=== PATIENT | male | born 2000 | race Caucasian/White ===

== ENCOUNTER 2022-05-13 19:08 | Inpatient (IN) ==
[2022-05-13 19:49] LABS: Basophils # 0.1 K/mcL (0.0-0.2); Basophils % 0.5 %; Eosinophils # 0.1 K/mcL (0.0-0.6); Eosinophils % 0.7 %; Hematocrit 40.7 % (37.5-50.1); Hemoglobin 14.3 g/dL (12.9-16.9); Immature Granulocytes % 0.3 % (0-4); Lymphocytes # 2.8 K/mcL (0.6-4.6); Lymphocytes % 30.6 %; Mean Corpuscular HGB Conc 35.1 g/dL (31.6-35.5); Mean Corpuscular Hemoglobin 29.7 pg (28.0-33.3); Mean Corpuscular Volume 84.4 fL (83.0-100.0); Mean Platelet Volume 10.1 fL (9.4-12.4); Monocytes # 0.6 K/mcL (0.0-1.3); Monocytes % 6.1 %; Neutrophils # 5.7 K/mcL (1.6-8.9); Platelet Count 216 K/mcL (140-400); Red Blood Count 4.82 M/mcL (4.19-5.50); Red Cell Distribution Width 12.1 % (11.5-14.5); Segmented Neutrophils % 61.8 %; White Blood Count 9.2 K/mcL (4.3-11.1)
[2022-05-13] MEDS ORDERED: *HR* LORazepam 1 MG TABLET PO ONE (19:52)
[2022-05-13 19:53] LABS: Bacteria,Urine Few per hpf (None-Few); Bilirubin,Urine Negative (Negative); Blood,Urine Negative (Negative); Clarity,Urine Clear (Clear); Color,Urine Yellow (Yellow); Glucose,Urine (UA) Normal (Normal); Ketones,Urine Trace mg/dL (Negative); Leukocyte Esterase,Urine Negative (Negative); Mucus,Urine Few per lpf (None-Few); Nitrite,Urine Negative (Negative); Protein,Urine 70 mg/dL (Neg-Trace); RBC,Urine 0-3 per hpf (0-3); Specific Gravity,Urine 1.024 (1.010-1.025); Squamous Epithelial Cell,Urine Few per hpf (None-Few)
[2022-05-13 20:09] LABS: Acetaminophen < 10 mcg/mL (10-20); BUN/Creatinine Ratio 14 (6-26); Blood Urea Nitrogen 11 mg/dL (6-20); Calcium 10.1 mg/dL (8.6-10.3); Carbon Dioxide 21 mEq/L (23-29); Chloride 104 mEq/L (98-107); Ethanol < 10 mg/dL (Less than 10); Glucose 102 mg/dL (70-105); Osmolality,Calculated 282 (280-300); Potassium 3.3 mEq/L (3.5-5.1); Salicylate < 2.5 mg/dL (15.0-30.0); Sodium 136 mEq/L (136-145)
[2022-05-13 20:20] LABS: Amphetamine Screen,Urine Negative ng/mL (Cutoff=1000); Barbiturate Screen,Urine Negative ng/mL (Cutoff=200); Benzodiazepines Screen,Urine Positive ng/mL (Cutoff=200); Cannabinoid Screen,Urine Positive ng/mL (Cutoff = 50); Cocaine Screen,Urine Negative ng/mL (Cutoff= 300); Opiate Screen,Urine Negative ng/mL (Cutoff=300); Phencyclidine Screen,Urine Negative ng/mL (Cutoff=25)
[2022-05-13 20:30] LABS: Influenza A PCR Negative (Negative); Influenza B PCR Negative (Negative); Resp. Syncytial Virus PCR Negative (Negative)
[2022-05-13 20:31] LABS: SARS-CoV-2 by PCR (In House) Negative (Negative)
[2022-05-14] MEDS ORDERED: *HR* LORazepam 2 MG/ML VIAL IM PRN (00:03)
[2022-05-14] MEDS ORDERED: QUEtiapine Fumarate 25 MG TABLET PO PRN (00:03)
[2022-05-14] MEDS ORDERED: haloperidoL 5 MG TABLET PO PRN (00:03)
[2022-05-14] MEDS ORDERED: Haloperidol Lactate 5 MG/ML VIAL IM PRN (00:03)
[2022-05-14] MEDS ORDERED: Acetaminophen 325 MG TABLET PO PRN (00:03)
[2022-05-14] MEDS ORDERED: hydrOXYzine pamoate 25 MG CAPSULE PO PRN (00:03)
[2022-05-14] MEDS ORDERED: *HR* LORazepam 1 MG TABLET PO PRN (00:03)
[2022-05-14] MEDS ORDERED: Mag Hydrox/Al Hydrox/Simeth 30 ML UDC PO PRN (11:20)
[2022-05-14] MEDS ORDERED: MOM Conc 10 ML UD.LIQ PO PRN (11:20)
[2022-05-14] MEDS ORDERED: Hydrocortisone 1% OINT 28 GM TUBE TP PRN (11:23)
[2022-05-14] MEDS ORDERED: risperiDONE 1 MG TABLET PO SCH (21:00)
[2022-05-15 09:14] LABS: Chol/HDL Ratio 2.3 (0-4.9)
[2022-05-15 09:24] LABS: Thyroid Stimulating Hormone 1.064 mcIU/mL (0.340-5.600)
[2022-05-15 11:08] LABS: Estimated Average Glucose 105 mg/dl; Hemoglobin A1C 5.3 %
[2022-05-15] MEDS: risperiDONE 1 MG TABLET PO SCH ×2 (12:56→21:01)
[2022-05-16] MEDS: risperiDONE 1 MG TABLET PO SCH (08:46)
[2022-05-16 09:11] VITALS: O2SAT 99
[2022-05-16] MEDS ORDERED: traZODone 50 MG TABLET PO PRN (09:21)
[2022-05-16] MEDS ORDERED: risperiDONE 1 MG TABLET PO ONE (11:33)
[2022-05-16] MEDS: Paliperidone Palmitate 234 MG/1.5 ML SYRINGE IM ONE ×2 (14:03→22:23)
[2022-05-16] MEDS ORDERED: Paliperidone Palmitate 234 MG/1.5 ML SYRINGE IM ONE (22:15)
[2022-05-17 10:36] VITALS: BP 117/70; PULSE 72; TEMP 97.2
[2022-05-23] MEDS ORDERED: Paliperidone Palmitate 156 MG/ML SYRINGE IM ONE (10:00)
== END 2022-05-17 12:45 | disposition home or self-care (01) | DRG 751 ==
LOC: EMEROOARM 19:08 → 1ANU 23:55
PROVIDERS: ADMIT Psychiatry & Neurology Psychiatry; ATTEND Psychiatry & Neurology Psychiatry